=== PATIENT | female | born 1970 | race Caucasian/White ===

== ENCOUNTER 2017-04-05 21:00 | Inpatient (IN) | payer OTHER ==
[~2017-04-05] VITALS: Ht 152.4 cm; Wt 59.4 kg
--- NOTE | ~2017-04-05 | PN ---
Unit #: [id number] #: [id number] Patient: PAUL GARLAND [id number] [facility] [address] [place] [address] [id number] MR#: [id number] NAME: PAUL GARLAND ROOM: P259 Age: 46 Sex: F Admission Date: 04/06/2017 : 1970 Attending Physician: Trevor Chin M.D. Admitting Physician: Trevor Chin M.D. Primary Care Physician: Generic Doctor Not In System [facility] PROGRESS NOTES DATE April 07, 2017 DISCUSSION Ms. Garland is a 46-year-old white female, who was seen today and chart was reviewed and the case was discussed with the staff. She has been anxious, withdrawn, and rather seclusive to herself. Meanwhile, she has been cooperative with the treatment recommendations and has been taking the medications and tolerating them fairly well with no reported side effects. MENTAL STATUS EXAMINATION Middle-aged white female, who was casually dressed with fair personal hygiene and appears to be in no acute distress or discomfort. The patient was awake and alert on interaction with intact orientation. Her mood is anxious with a congruent affect. The patient denies any suicidal or homicidal ideations. Her insight and judgment remain slightly impaired. TREATMENT PLAN 1. We will continue her on her current medications and treatment protocol, and will monitor her response to the medications, and make further adjustments as needed. 2. We will continue to followup. Dictated by... Kevin Gonzales/mahesh TD: 04/08/2017 07:47 JOB #: [id number] Unit #: [id number] #: [id number] Patient: PAUL GARLAND PEASHARIF PROGRESS NOTES Page 1 of 1 X Trevor Chin MD X PROGRESS NOTE
--- NOTE | ~2017-04-05 | PN ---
Unit #: [id number] #: [id number] Patient: PAUL GARLAND [id number] [facility] [address] [place] [address] [id number] I MR#: [id number] NAME: PAUL GARLAND ROOM: P259 Age: 46 Sex: F Admission Date: 04/06/2017 : 1970 Attending Physician: Trevor Chin M.D. Admitting Physician: Trevor Chin M.D. Primary Care Physician: Generic Doctor Not In System [facility] PROGRESS NOTES DATE 04/08/2017 DISCUSSION Ms. Garland is a 46-year-old white female with substance abuse and mood disorder who was seen today and chart was reviewed and case was discussed with the staff. She has been anxious, withdrawn and rather seclusive to herself and reports still having detox symptoms and not feeling good and has not been able to function very well. Neither does she appear to be participating in activities. She has been seclusive to herself. Meanwhile, she has been taking her medications and tolerating them fairly well with no reported side effects. MENTAL STATUS EXAMINATION Middle-aged white female who was casually dressed with fair personal hygiene and appears to be in no acute distress or discomfort. She was awake and alert on interaction with intact orientation. Her mood was anxious with congruent affect. She denies any suicidal or homicidal ideation and also denies any auditory or visual hallucinations. Her insight and judgement remains slightly impaired. TREATMENT PLAN 1. Will continue on current medications and treatment protocol. Will monitor her response to the medications and make further adjustments as needed. 2. Will continue to follow up. Dictated by... Kevin Gonzales/kishore TD: 04/08/2017 22:24 JOB #: [id number] Unit #: [id number] #: [id number] Patient: PAUL GARLAND PROGRESS NOTES Page 1 of 1 X Trevor Chin MD PROGRESS NOTE
--- NOTE | ~2017-04-05 | PN ---
Unit #: [id number] #: [id number] Patient: PAUL GARLAND [id number] [facility] [address] [place] [address] [id number] I MR#: [id number] NAME: PAUL GARLAND ROOM: P259 Age: 46 Sex: F Admission Date: 04/06/2017 : 1970 Attending Physician: Trevor Chin M.D. Admitting Physician: Trevor Chin M.D. Primary Care Physician: Generic Doctor Not In System [facility] PROGRESS NOTES DATE OF SERVICE: 04/09/2017 SUBJECTIVE Ms. Garland is a 46-year-old white female, who was seen today and chart was reviewed and case was discussed with the staff. She has been anxious, withdrawn, and seclusive to herself. Meanwhile, she reports still having detox symptoms and body aches and pains, and having to wake up in the middle of the night and having to get Tylenol and Neurontin together to find any relief and has not been able to come out of the detox she been able to participate in activities of daily living, however, no agitation or aggression has been noted. MENTAL STATUS EXAMINATION Middle-aged white female, who was casually dressed with fair personal hygiene, appears to be in distress or discomfort. She was awake and alert with impaired attention and concentration. Her mood was anxious with a congruent affect. She denies any suicidal or homicidal ideations and also denies any auditory or visual hallucinations. Her insight and judgment remain slightly impaired. TREATMENT PLAN 1. We will continue current medications and treatment protocol. We will monitor her response to medications and make further adjustments as needed. 2. We will continue to follow up. Dictated by... Kevin Gonzales/elieser TD: 04/09/2017 09:09 JOB #: [id number] Unit #: [id number] #: [id number] Patient: PAUL GARLAND SHARIF PROGRESS NOTES Page 1 of 1 X Trevor Chin MD X PROGRESS NOTE
--- NOTE | ~2017-04-05 | PN ---
Unit #: [id number] #: [id number] Patient: PALU GARLAND [id number] [facility] [address] [place] [address] [id number] I MR#: [id number] NAME: PAUL GARLAND ROOM: P259 Age: 46 Sex: F Admission Date: 04/06/2017 : 1970 Attending Physician: Trevor Chin M.D. Admitting Physician: Trevor Chin M.D. Primary Care Physician: Generic Doctor Not In System [facility] PROGRESS NOTES DATE OF SERVICE 04/10/2017 DISCUSSION Ms. Garland is a 46-year-old white female who was seen today. Chart was reviewed and case was discussed with the staff. She has been anxious, withdrawn, and rather seclusive to herself and reports still having some mild detox symptoms as she has been cooperative with treatment recommendations and has been taking the medications and tolerating them fairly well with no reported side effects. MENTAL STATUS EXAMINATION Middle-aged white female who is casually dressed with fair personal hygiene, appears to be in no acute distress or discomfort. She was awake and alert with intact orientation. Her mood is anxious with congruent affect. She denies any suicidal or homicidal ideations and also denies any auditory or visual hallucinations. Her insight and judgment remain slightly impaired. TREATMENT PLAN 1. We will continue her on her current medications and treatment protocol. We will monitor her response to the medications and make further adjustments as needed. 2. We will continue to follow up. Dictated by... Kevin Gonzales/jilg TD: 04/10/2017 14:03 JOB #: [id number] Unit #: [id number] #: [id number] Patient: PAUL GARLAND PROGRESS NOTES Page 1 of 1 X Trevor Chin MD X PROGRESS NOTE
--- NOTE | ~2017-04-05 | HP ---
Unit #: [id number] #: [id number] Patient: PAUL GARLAND [id number] [place] [address] [id number] MR#: [id number] NAME: PAUL GARLAND ROOM: P259 Age: 46 Sex: F Admission Date: 04/06/2017 : 1970 Attending Physician: Trevor Chin M.D. Admitting Physician: Trevor Chin M.D. Primary Care Physician: Generic Doctor Not In System HISTORY AND PHYSICAL HISTORY OF PRESENT ILLNESS The patient is a 46-year-old female who states she is coming off of her pain medicine that she was prescribed. However, she also has a history of heroin use. PAST MEDICAL HISTORY None. PAST SURGICAL HISTORY None. SOCIAL HISTORY Negative ALLERGIES None. FAMILY HISTORY Noncontributory. REVIEW OF SYSTEMS CONSTITUTIONAL: No fever or chills. HEENT: Denies any sore throat, ear pain or runny nose. CARDIOVASCULAR: Denies chest pain, irregular heart rhythm or palpitations. CHEST: Denies shortness of breath or cough. No hemoptysis. GASTROINTESTINAL: Denies nausea, vomiting, diarrhea or chronic constipation. ENDOCRINE: Denies history of increased thirst or urination. No recent significant weight loss or gain. GENITOURINARY: Denies dysuria, frequency, or hematuria. SKIN: Denies any rashes. HEMATOLOGIC: Denies history of increased bleeding or bruising. MUSCULOSKELETAL: Denies any hot, swollen joints. No generalized muscle pain. NEUROLOGIC: Denies problems with vision or speech. No frequent, severe headaches. No numbness, tingling or weakness in any extremities. Denies loss of bladder or bowel control. CURRENT MEDICATIONS None. Unit #: [id number] #: [id number] Patient: PAUL GARLAND PHYSICAL EXAMINATION GENERAL: Alert, oriented in no acute distress. VITAL SIGNS: Temperature 97.9, heart rate 81, respirations 18, blood pressure 122/77. HEIGHT: 5 feet WEIGHT: 131 pounds SKIN: Warm and dry without rash. Scar of some sort to the right wrist. HEENT: Normocephalic. TMs not viewed. Oral and nasal passages clear. Conjunctivae clear. PERRLA. EOMs intact. NECK: Supple without lymphadenopathy or thyromegaly. HEART: Regular rate and rhythm without murmur. LUNGS: Clear. ABDOMEN: Soft, nontender, without masses or hepatosplenomegaly. : Not done. EXTREMITIES: No evidence of cyanosis, clubbing or edema. Moves all without focal deficit. NEUROLOGICAL: Grossly within normal limits. Cranial Nerves: II: Visual henao are intact. III, IV AND : Extraocular movements are intact. Pupils are equal, round and reactive to light. V: Facial sensation is grossly normal. VII: Facial movements and expression are normal. VIII: Auditory acuity grossly intact. IX, X: Uvula is midline. Phonation is normal. XI: Patient shrugs shoulders and turns head normally. XII: Tongue protrudes in the midline. Sensory and Motor Function: Sensory and motor sensation is grossly normal. Motor: moves all extremities well. Coordination: Gait is normal. Deep Tendon Reflexes: Intact. IMPRESSION Psychiatric admission RECOMMENDATIONS Psychiatric, per psychiatrist. MEDICAL: I see no contraindications to participating in facility's activities. MEDICAL PROGNOSIS Good. Dictated by... Monika Montero/aliyah TD: 04/07/2017 02:34 JOB #: [id number] Unit #: [id number] #: [id number] Patient: PAUL GARLAND HISTORY AND PHYSICAL Page 1 of 1 X Sofi Avery APR X HISTORY AND PHYSICAL
--- NOTE | ~2017-04-05 | DS ---
Unit #: [id number] #: [id number] [facility]LAND [id number] [facility] [address] [place] [address] [id number] I MR#: [id number] NAME: PAUL GARLAND ROOM: P259 Age: 46 Sex: F Admission Date: 04/06/2017 : 1970 Discharge Date: 04/11/2017 Attending Physician: Trevor Chin M.D. Primary Care Physician: Generic Doctor Not In System DISCHARGE SUMMARY IDENTIFYING DATA Ms. Garland is a 46-year-old white female, who is a residence of [place], [place] as was brought to the hospital by her family on a voluntary basis with a chief complaint of "I need to detox off of pain pills." HISTORY OF PRESENT ILLNESS Please see initial psychiatric evaluation for details. PAST PSYCHIATRIC HISTORY Please see initial psychiatric evaluation for details. PAST MEDICAL HISTORY Please see initial psychiatric evaluation for details. HOSPITAL COURSE The patient [facility] and was oriented to the hospital environment, and routine p.r.n. medications are initiated and she was started on the opiate detox protocol and was closely monitored. She was taking her medications regularly and was tolerating them fairly well and able to come out of the detox without any complications and was willing to continue treatment on outpatient basis and as such it was decided that she will be discharged and will continue treatment on an outpatient basis. DISCHARGE DIAGNOSES [place] I Major depressive disorder, recurrent, moderate, without psychotic features. Opiate dependence, moderate in acte withdrawal. [place] II [place] III Chronic pain. [place] IV Mild psychosocial stressors. [place] V DISCHARGE MEDICATIONS None. CONDITION AT DISCHARGE Stable. Unit #: [id number] #: [id number] Patient: PAUL GARLAND Dictated by... Kevin Gonzales/mahesh TD: 04/11/2017 07:02 JOB #: [id number] DISCHARGE SUMMARY Page 1 of 1 X Trevor Chin MD X DISCHARGE SUMMARY
--- NOTE | ~2017-04-05 | PA ---
Unit #: [id number] #: [id number] [facility]: [facility] [id number] [facility] [address] [place] [address] [id number] I MR#: [id number] NAME: PAUL GARLAND ROOM: P259 Age: 46 Sex: F Admission Date: 04/06/2017 : 1970 Date of Assessment: Attending Physician: Trevor Chin M.D. Admitting Physician: Trevor Chin M.D. PSYCHIATRIC ASSESSMENT DATE OF SERVICE 04/06/2017. IDENTIFYING DATA Ms. Garland is a 46-year-old , white female, who is a resident of [place], [place] and was brought to the hospital by her family on a voluntary basis. CHIEF COMPLAINT "I need to detox off pain pills." HISTORY OF PRESENT ILLNESS Ms. Garland is a 46-year-old white female with history of opioid dependence, who was self-referred to the hospital, stating that she was in pain management. She was dismissed due to missing too many appointments and she was taking 4 to 5 Percocet 10 mg each and has a history of snorting heroin with the last use couple of years ago and reports that she was unable to see pain management doctor until 05/09 and reports significant withdrawal symptoms of shakes, sweats, nausea, runny nose, diarrhea, and reports that she has had a 10 mg Percocet this morning and she feels suicidal and not being able to get a life together. However, she denied any intent or plan, but was seemed to be in significant threat to herself and therefore, recommendation for inpatient level of care for safety and stabilization was made and the patient was transferred to us. SUBSTANCE ABUSE HISTORY The patient reports history of opioid dependence and has been using opioids in one form or the other for the last 3 years. PAST PSYCHIATRIC HISTORY The patient has had a history of inpatient psychiatric treatment at [facility] in the past, and review of the medical records indicate that currently she is not active in any treatment program, is not seeing a psychiatrist, and is not taking any psychotropic medications. PAST MEDICAL HISTORY The patient's medical history is insignificant. ALLERGIES Penicillin. PERSONAL AND SOCIAL HISTORY A 46-year-old white female, who reports that she is and lives by Unit #: [id number] #: [id number] Patient: PAUL GARLAND herself and has poor social support system. MENTAL STATUS EXAMINATION Middle-aged white female, who was casually dressed with fair personal hygiene, appears to be in no acute distress or discomfort. She was awake and alert on interaction with intact orientation to time, place, and person. Her mood was anxious and depressed with a congruent affect. Her speech was slow and restricted in content. Her thought processes were disorganized with some looseness of associations and flight of ideas and paranoid ideations and suicidal ideations. Her insight and judgment remain significantly impaired. DIAGNOSTIC IMPRESSION Psychiatric: Major depressive disorder, recurrent, moderate, without psychotic features; opioid dependence, moderate. Medical: Chronic pain. Stressors: Moderate psychosocial stressors. TREATMENT PLAN 1. The patient has presented with history of mood disorder and substance abuse and has been decompensating, and will need inpatient hospitalization for safety and stabilization. We will start her back on her home medications. We will also start her back on detox protocol. 2. Supportive therapy was provided to the patient. ESTIMATED LENGTH OF STAY 5 to 7 days. ABILITY TO HELP SELF Limited. WILLINGNESS TO HELP SELF The patient appears to be willing to help self. STRENGTHS 1. Communicative. 2. Cooperative. PROBLEMS 1. Chronic dysphoric symptoms. 2. Chronic chemical dependency. 3. Poor social support system. DISCHARGE CRITERIA This will be contingent upon the patient's ability to go through detox without having any significant withdrawal symptoms as well as her ability to stay safe to herself, particularly after discharge from the hospital. Dictated by... Kevin Gonzales/elieser TD: 04/06/2017 14:51 JOB #: [id number] Unit #: [id number] #: [id number] Patient: PAUL GARLAND PSYCHIATRIC ASSESSMENT Page 1 of 1 X Trevor Chin MD X PSYCHIATRIC ASSESSMENT
[~2017-04-05 21:00] MED LIST: CLARITIN D PO; LORTAB 10-5001 EACH PO; NEURONTIN300 MG PO; NEXIUM PO; PERCOCET10 PO; ZYRTEC-D T1 TAB.SR1 PO
[2017-04-06 12:25] LABS: URINE APPEARANCE CLEAR; URINE BILIRUBIN NEG (NEG); URINE BLOOD NEG (NEG); URINE COLOR YELLOW; URINE GLUCOSE NEG (NEG); URINE KETONE NEG (NEG); URINE LEUKOCYTE ESTERASE 1+ (NEG); URINE NITRATE NEG (NEG); URINE PROTEIN NEG (NEG); URINE SPECIFIC GRAVITY 1.014 (1.003-1.035)
[2017-04-06 12:28] LABS: CULTURE INDICATED? YES; URINE BACTERIA AUWI 1+ (NEGATIVE); URINE SQUAMOUS EPITHELIAL CELL FEW /[HPF]
[2017-04-06 12:55] LABS: AMPHETAMINE NEG (NEG); BARBITURATES NEG (NEG); BENZODIAZEPINES NEG (NEG); COCAINE NEG (NEG); MARIJUANA NEG (NEG); OPIATES NEG (NEG); TRICYCLIC ANTIDEPRESSANTS NEG (NEG); U METHADONE POS (NEG)
[2017-04-07 09:50] LABS: BASOPHIL% 0.6 % (0-2.5); EOSINOPHIL# 0.1 X10e3 (0-0.7); EOSINOPHIL% 1.6 % (0.0-7.0); HEMATOCRIT 36.8 % (35.0-45.0); HEMOGLOBIN 12.6 gm/dL (12.0-16.0); LYMPHOCYTE# 2.6 X10e3 (1.0-3.5); LYMPHOCYTE% 44.9 % (17.0-45.0); MEAN CELL VOLUME 95.9 FL (83-96); MEAN CORPUSCULAR HEMOGLOBIN 32.9 PG (28-34); MEAN CORPUSCULAR HGB CONC 34.3 g/dL (30-36); MEAN PLATELET VOLUME 9.2 FL (6.5-11.5); MONOCYTE# 0.4 X10e3 (0-1.0); MONOCYTE% 7.7 % (3.0-12.0); NEUTROPHIL# 2.6 X10e3 (1.5-7.1); NEUTROPHIL% 45.2 % (40-75); PLATELET COUNT 133 X10e3 (140-420); RED BLOOD COUNT 3.84 X10e (3.90-5.30); RED CELL DISTRIBUTION WIDTH 12.6 % (11.0-15.5); WHITE BLOOD COUNT 5.7 X10e3 (4.0-10.5)
[2017-04-07 10:00] LABS: DIFF IND NO
[2017-04-07 10:42] LABS: ALBUMIN SERUM 3.9 g/dL (3.5-5.0); BILIRUBIN,TOTAL 1.3 mg/dL (0.2-2.0); CALCIUM SERUM 9.3 mg/dL (8.4-10.2); CREATININE SERUM 0.8 mg/dL (0.6-1.4); GLOM FILT RATE Estimated 89.1 mL/min (>60); POTASSIUM 4.5 mmol/L (3.5-5.1); PROTEIN TOTAL SERUM 6.3 g/dL (6.0-8.3)
== END 2017-04-11 11:45 | disposition home or self-care (01) | DRG 885 ==
LOC: P2L 04-06 00:02
PROVIDERS: Psychiatry & Neurology Psychiatry
PROC: HZ2ZZZZ Detoxification Services for Substance Abuse Treatment (ICD-10-PCS; principal; 2017-04-06)
DX: F33.1 Major depressive disorder, recurrent, moderate (principal); F11.23 Opioid dependence with withdrawal; G89.29 Other chronic pain
CPT/HCPCS: 80053; 80307; 81003; 84703; 85025; 86592; 87086

== ENCOUNTER 2017-04-24 07:00 | Inpatient (IN) | payer OTHER ==
[~2017-04-24] VITALS: Ht 152.4 cm; Wt 61.7 kg
--- NOTE | ~2017-04-24 | PA ---
Unit #: [id number] #: [id number] Patient: PAUL GARLAND [id number] [facility] [address] [place] [address] [id number] Eliza MR#: [id number] NAME: PAUL GARLAND ROOM: [facility] Age: 46 Sex: F Admission Date: 04/24/2017 : 1970 Date of Assessment: 04/25/2017 Attending Physician: Bobby Adams M.D. Admitting Physician: Bobby Adams M.D. Primary Care Physician: Generic Doctor Not In System PSYCHIATRIC ASSESSMENT DATE OF SERVICE 04/25/2017. INFORMANTS The patient reliable; OLOP, reliable. CHIEF COMPLAINT "I'm withdrawing of my Percocet." HISTORY OF PRESENT ILLNESS Paul Garland is a 46-year-old woman who reports she has been taking Percocet for some time and has been trying to decrease her use at home after period of overuse. These were prescribed for chronic pain by her Pain Clinic. She said that she could not tolerate detox and had increasing depression and hopelessness. She was unable to contract for safety and was admitted for opioid detox and further assessment. PAST PSYCHIATRIC HISTORY The patient has been taking opiates for some time from her primary care physician. She has been admitted to this facility in the past for problems with depression and was last here in March of this year. FAMILY PSYCHIATRIC HISTORY None reported. SOCIAL HISTORY The patient is and living by herself. She reports a minimal psychosocial support system. Please see previous assessments for details. PAST MEDICAL HISTORY Significant for chronic pain. MEDICATIONS Please see MAR allergies. ALLERGIES Penicillin. SUBSTANCE ABUSE HISTORY The patient has an iatrogenic addiction to Percocet. MENTAL STATUS EXAMINATION The patient presented as a mildly disheveled woman who appeared her stated Unit #: [id number] #: [id number] Patient: PAUL GARLAND age. She was cooperative with the examination. Her speech was spontaneous and easily understood. Her musculoskeletal examination was calm. Her mood was irritable and anxious with a congruent affect. She was alert and fully oriented. Her memory and concentration were fair. Her thought processes were goal directed with no active psychosis. She denied suicidal ideation, intent, or plan. Insight and judgment, fair. Fund of knowledge and abstraction, fair. ASSETS AND LIABILITIES Assets; the patient knows local resources and presents voluntarily for treatment. Liabilities; include chronic drug use, lack of psychosocial support. ADMITTING DIAGNOSES AXIS I: Opioid dependence with depression, F11.24. AXIS II: No diagnosis. AXIS III: Chronic pain and opioid detox. AXIS IV: AXIS V: PSYCHIATRIC PLAN The patient was admitted and placed on the opioid detox protocol. A physical examination and laboratory studies will be ordered and reviewed. We will restart her home medications once they are confirmed. She will enroll in dual diagnosis groups and activities. TREATMENT GOALS Resolution of intoxication, improvement in insight, and improvement in coping skills. DISCHARGE PLANNING Follow up with primary care physician and CD programing of the patient's choice. ESTIMATED LENGTH OF STAY 5 days. Dictated by... Bobby Adams M.D. JERSON/elieser TD: 04/28/2017 13:08 JOB #: [id number] PSYCHIATRIC ASSESSMENT Page 1 of 1 X Bobby Adams MD X PSYCHIATRIC ASSESSMENT
--- NOTE | ~2017-04-24 | PN ---
Unit #: [id number] #: [id number] Patient: PAUL GARLAND [id number] [facility] [address] [place] [address] [id number] I MR#: [id number] NAME: PAUL GARLAND ROOM: 73 Age: 46 Sex: F Admission Date: 04/24/2017 : 1970 Attending Physician: Bobby Adams M.D. Admitting Physician: Bobby Adams M.D. Primary Care Physician: Generic Doctor Not In System [facility] PROGRESS NOTES DATE OF SERVICE: 04/26/2017 DISCUSSION Paul continues to have active detox symptoms today. She is somewhat ill-appearing, but is taking oral fluids well. She is alert and fully oriented with no psychosis and no suicidal ideation. ASSESSMENT Opioid dependence. PLAN Continue detox protocol. Dictated by... Kevin LillyH/elieser TD: 04/30/2017 11:02 JOB #: [id number] [facility] PROGRESS NOTES Page 1 of 1 X Bobby Adams MD PROGRESS NOTE
--- NOTE | ~2017-04-24 | HP ---
Unit #: [id number] #: [id number] Patient: PAUL GARLAND [id number] [facility] [address] [place] [address] [id number] I MR#: [id number] NAME: PAUL GARLAND ROOM: [facility] Age: 46 Sex: F Admission Date: 04/24/2017 : 1970 Attending Physician: Bobby Adams M.D. Admitting Physician: Bobby Adams M.D. Primary Care Physician: Generic Doctor Not In System HISTORY AND PHYSICAL NOTE Paul is a 46 year old admitted to [facility] because of her continued drug use. The patient was seen and H and P dated 04/06/2017 was reviewed. This is current. No changes. Please see H and P dated 04/06/2017. Dictated by... Zoe Rosado P.A.-C. for Kevin Meraz/aliyah TD: 04/25/2017 01:17 JOB #: [id number] HISTORY AND PHYSICAL Page 1 of 1 X Zoe Rosado HISTORY AND PHYSICAL
--- NOTE | ~2017-04-24 | PN ---
Unit #: [id number] #: [id number] Patient: PAUL GARLAND [id number] [facility] [address] [place] [address] [id number] I MR#: [id number] NAME: PAUL GARLAND ROOM: P173 Age: 46 Sex: F Admission Date: 04/24/2017 : 1970 Attending Physician: Bobby Adams M.D. Admitting Physician: Bobby Adams M.D. Primary Care Physician: Generic Doctor Not In System [facility] PROGRESS NOTES DATE 04/29/2017 DISCUSSION Paul still has some cramping, nausea, and abdominal discomfort overall from her detox. She does feel improved today and has been able to get up and around to work with peers and staff. She is alert and fully oriented with no depression and no suicidal ideation. ASSESSMENT Opioid dependence. PLAN Continue current treatment plan anticipating discharge soon. Dictated by... Bobby Adams M.D. MRH/bzg TD: 04/30/2017 15:06 JOB #: [id number] [facility] PROGRESS NOTES Page 1 of 1 X Bobby Adams MD PROGRESS NOTE
--- NOTE | ~2017-04-24 | DS ---
Unit #: [id number] #: [id number] Patient: PAUL GARLAND [id number] [facility] [address] [place] [address] [id number] MR#: [id number] NAME: PAUL GARLAND ROOM: [facility] Age: 46 Sex: F Admission Date: 04/24/2017 : 1970 Discharge Date: 04/30/2017 Attending Physician: Bobby Adams M.D. DISCHARGE SUMMARY REASON FOR ADMISSION Paul is a 46-year-old woman who has been taking Percocet at home with overuse. These were prescribed by her Pain Clinic and she reported increasing difficulties tolerating her detox. She was admitted for stabilization. DIAGNOSTIC STUDIES LABORATORY RESULTS: Please see hospital chart. HOSPITAL COURSE The patient was admitted and placed on the opioid detox protocol. Her home medications were held pending her discharge. The patient had vigorous detox symptoms for 48 hours, which was resolved, however, she complained of mild nausea and cramping at the time of discharge. She had not participated in any 12-step groups and activities, and participated minimally in discharge planning. DISCHARGE DIAGNOSES AXIS I: Opioid dependence withdrawal, uncomplicated. AXIS II: No diagnosis. AXIS III: Chronic pain. AXIS IV: AXIS V: PSYCHIATRIC INSTRUCTIONS The patient was discharged to the care of her primary care physician and CD program of her choice. She states she has an appointment with a new pain doctor coming up. DISCHARGE MEDICATIONS None. CONDITION AT DISCHARGE Fair. PROGNOSIS Fair. DIET AND ACTIVITY Ad james. Unit #: [id number] #: [id number] Patient: PAUL GARLAND Dictated by... Kevin Lilly/elieser TD: 04/30/2017 12:09 JOB #: [id number] DISCHARGE SUMMARY Page 1 of 1 X Bobby Adams MD X DISCHARGE SUMMARY
--- NOTE | ~2017-04-24 | PN ---
Unit #: [id number] #: [id number] Patient: PAUL GARLAND [id number] [facility] [address] [place] [address] [id number] MR#: [id number] NAME: PAUL GARLAND ROOM: 73 Age: 46 Sex: F Admission Date: 04/24/2017 : 1970 Attending Physician: Bobby Adams M.D. Admitting Physician: Bobby Adams M.D. Primary Care Physician: Generic Doctor Not In System [facility] PROGRESS NOTES DATE 04/28/2017 DISCUSSION Paul continues to have active detox symptoms today although she says she is a little bit better than yesterday. Her mood continues to be anxious with a dysphoric affect. She is alert and fully oriented. Her memory and concentration are intact. Her thought processes are logical with no psychosis and no suicidal ideation. ASSESSMENT Opiate dependence. PLAN Continue detox protocol. Dictated by... Kevin Lilly/kishore TD: 04/30/2017 16:33 JOB #: [id number] [facility] PROGRESS NOTES Page 1 of 1 X Bobby Adams MD PROGRESS NOTE
[2017-04-25 09:50] LABS: BASOPHIL% 0.6 % (0-2.5); EOSINOPHIL# 0.1 X10e3 (0-0.7); HEMATOCRIT 35.8 % (35.0-45.0); HEMOGLOBIN 12.9 gm/dL (12.0-16.0); LYMPHOCYTE% 40.5 % (17.0-45.0); MEAN CELL VOLUME 95.2 FL (83-96); MEAN CORPUSCULAR HEMOGLOBIN 34.3 PG (28-34); MEAN PLATELET VOLUME 8.7 FL (6.5-11.5); MONOCYTE# 0.3 X10e3 (0-1.0); MONOCYTE% 5.8 % (3.0-12.0); NEUTROPHIL# 2.6 X10e3 (1.5-7.1); NEUTROPHIL% 52.1 % (40-75); PLATELET COUNT 145 X10e3 (140-420); RED BLOOD COUNT 3.76 X10e (3.90-5.30); RED CELL DISTRIBUTION WIDTH 12.4 % (11.0-15.5); WHITE BLOOD COUNT 4.9 X10e3 (4.0-10.5)
[2017-04-25 09:51] LABS: ALBUMIN SERUM 4.1 g/dL (3.5-5.0); BILIRUBIN,TOTAL 1.2 mg/dL (0.2-2.0); BUN/CREATININE RATIO 21.42; CALCIUM SERUM 9.6 mg/dL (8.4-10.2); CREATININE SERUM 0.7 mg/dL (0.6-1.4); GLOM FILT RATE Estimated 104.6 mL/min (>60); POTASSIUM 4.2 mmol/L (3.5-5.1); PROTEIN TOTAL SERUM 6.5 g/dL (6.0-8.3)
[2017-04-25 10:00] LABS: DIFF IND NO
[2017-04-27 12:29] LABS: URINE APPEARANCE CLOUDY; URINE BILIRUBIN NEG (NEG); URINE BLOOD NEG (NEG); URINE COLOR DK YELLOW; URINE GLUCOSE NEG (NEG); URINE KETONE NEG (NEG); URINE LEUKOCYTE ESTERASE 1+ (NEG); URINE NITRATE NEG (NEG); URINE PROTEIN NEG (NEG); URINE SPECIFIC GRAVITY 1.017 (1.003-1.035); URINE UROBILINOGEN 0.2 MG/DL (NEG)
[2017-04-27 12:33] LABS: URINE BACTERIA AUWI 2+ (NEGATIVE); URINE SQUAMOUS EPITHELIAL CELL MOD /[HPF]
[2017-04-27 12:39] LABS: AMPHETAMINE NEG (NEG); BARBITURATES NEG (NEG); BENZODIAZEPINES NEG (NEG); COCAINE NEG (NEG); MARIJUANA NEG (NEG); OPIATES NEG (NEG); TRICYCLIC ANTIDEPRESSANTS NEG (NEG); U METHADONE NEG (NEG)
== END 2017-04-30 12:09 | disposition home or self-care (01) | DRG 897 ==
LOC: P1E 08:28
PROVIDERS: Psychiatry & Neurology Psychiatry
PROC: HZ2ZZZZ Detoxification Services for Substance Abuse Treatment (ICD-10-PCS; principal; 2017-04-24)
DX: F11.24 Opioid dependence with opioid-induced mood disorder (principal); G89.29 Other chronic pain; Z88.0 Allergy status to penicillin
CPT/HCPCS: 80053; 80307; 81003; 85025; 86592